=== PATIENT | female | born 1960 ===

== ENCOUNTER 2017-08-26 06:36 | Day surgery (SDC) | payer OTHER ==
[~2017-08-26 06:36] MED LIST: ADVIL LIQUI-GE200 MG PO; ALEVE220 M1 PO; BUMEX; CLONAZEPAM2 M1 PO; CYMBALTA60 MG PO; DICY20TA PO; DIOVAN320 MG PO; FOLIC ACID1 MG PO; HUMIRA PEN40 MG/0.2; METHOTREXATE2.5 MG PO; MILLIPRED5 MG PO; NORFLEX PO; PLAQUENIL PO; PREVACID30 M1 PO; SYNTHROID75 MCG PO; TOPAMAX50 MG PO; TOPROL XL50 M1 PO; TRAMADOL HCL50 MG PO; VYTORIN 10-101 EACH PO; ZANTAC300 MG PO
[2017-08-26] MEDS ORDERED: CIPRO500 MG PO (16:34)
== END 2017-08-26 18:10 | disposition home or self-care (01) ==
LOC: CIR.AMB 06:36
DX: R93.8 Abnormal findings on diagnostic imaging of other specified body structures (principal)

== ENCOUNTER → 2019-09-27 | Outpatient (CLI) | payer OTHER ==
[~2019-09-27] MED LIST changes: +CIPRO500 MG PO
== END | disposition home or self-care (01) ==
LOC: RX STUDY 09:55
PROVIDERS: ATTEND Surgery
DX: K21.9 Gastro-esophageal reflux disease without esophagitis (principal)